=== PATIENT | female | born 1980 | race American Indian/Alaskan Native ===

== ENCOUNTER 2017-01-07 09:14 | Emergency (ER) | payer SELFPAY ==
[2017-01-07 10:03] VITALS: BP 126/89
[2017-01-07 11:35] LABS: Bilirubin,Urine NEG (Negative); Blood,Urine NEG (Negative); Ketones,Urine NEG (Negative); Leukocyte Esterase,Urine NEG (Negative); Mucus,Urine FEW /HPF; Nitrite,Urine NEG (Negative); Protein,Urine <15 mg/dL mg/dL (Negative); Urobilinogen,Urine < 2.0 mg/dL (<2.0)
[2017-01-07] MEDS ORDERED: REGLAN IM ONE (12:26)
[2017-01-07] MEDS ORDERED: TORADOL IM ONE (12:26)
--- NOTE | 2017-01-07 12:33 | Emergency Department Report ---
ED Headache HPI - General Chief Complaint: Headache Stated Complaint: MIGRAINES 1WK Time Seen by Provider: 01/07/17 12:10 Source: patient - History of Present Illness Initial Comments: Patient comes into the ER today with complaints of frontal and bilateral temporal headache that has been constant over the past week. Patient does state that over the past couple years she has had frequent recurrent headaches weekly. Patient denies any injury. Patient states that she has been seen at other facilities and has had recently a negative CT scan of the head. Patient states that she was referred to neurology but she lost the paperwork and has not seen a specialist yet. Patient has been taken [id number] medicines as well as tramadol without any relief in her headache. Patient denies any change in environment or diet. Patient denies any nausea, vomiting, nasal congestion, vision changes, chest pain. Patient states that she has also been feeling very tight and tense in her neck. Patient came in here today in hopes of getting something for her pain and for another referral to a specialist. Allergies/Adverse Reactions: Allergies No Known Allergies Allergy (Unverified 01/07/17 09:58) Home Medications: Ambulatory Orders Butalb/Acetamin/Caff 50-325-40 [Fioricet] 1 tab PO Q6HR PRN #20 tab 01/07/17 Cyclobenzaprine HCl [Flexeril 5 MG TAB] 5 mg PO TID #20 tab 01/07/17 predniSONE [Deltasone] 40 mg PO QDAY 5 Days 01/07/17 ED Review of Systems ROS: Stated complaint: MIGRAINES 1WK Other details as noted in HPI Constitutional: denies: chills, fever Eyes: denies: eye pain, eye discharge, vision change ENT: denies: ear pain, throat pain, dental pain, hearing loss, epistaxis, congestion Respiratory: denies: cough, shortness of breath, wheezing Cardiovascular: denies: chest pain, palpitations Endocrine: no symptoms reported Gastrointestinal: denies: abdominal pain, nausea, vomiting, diarrhea Genitourinary: denies: urgency, dysuria, discharge Musculoskeletal: denies: back pain, joint swelling, arthralgia Skin: denies: rash, lesions Neurological: headache. denies: weakness, numbness, paresthesias, confusion, abnormal gait, vertigo Psychiatric: denies: anxiety, depression Hematological/Lymphatic: denies: easy bleeding, easy bruising ED Past Medical Hx - Past Medical History Previous Medical History?: Yes Additional medical history: Vaginal dleivery x 3 - Surgical History Past Surgical History?: Yes Additional Surgical History: tubaligation - Social History Smoking Status: Never Smoker Substance Use Type: Alcohol, Non Opiate Pain - Medications Home Medications: Home Medications Medication Instructions Recorded Confirmed Last Taken Type Butalb/Acetamin/Caff 50-325-40 1 tab PO Q6HR PRN #20 tab 01/07/17 Unknown Rx [Fioricet] Cyclobenzaprine HCl [Flexeril 5 MG 5 mg PO TID #20 tab 01/07/17 Unknown Rx TAB] predniSONE [Deltasone] 40 mg PO QDAY 5 Days 01/07/17 Unknown Rx ED Physical Exam - General Limitations: No Limitations General appearance: alert, in no apparent distress - Head Head exam: Present: atraumatic, normocephalic, normal inspection, other ( bilateral temporal tenderness) - Eye Eye exam: Present: normal appearance, PERRL, EOMI. Absent: conjunctival injection, periorbital swelling, periorbital tenderness Pupils: Present: normal accommodation - ENT ENT exam: Present: normal exam, normal orophraynx, mucous membranes moist, TM's normal bilaterally, normal external ear exam - Neck Neck exam: Present: normal inspection, tenderness (bilateral posterior muscular tenderness. No vertebral body tenderness), full ROM. Absent: meningismus, lymphadenopathy - Respiratory Respiratory exam: Present: normal lung sounds bilaterally. Absent: respiratory distress, chest wall tenderness - Cardiovascular Cardiovascular Exam: Present: regular rate, normal rhythm, normal heart sounds. Absent: systolic murmur, diastolic murmur, rubs, gallop - GI/Abdominal GI/Abdominal exam: Present: soft, normal bowel sounds. Absent: distended, tenderness - Extremities Exam Extremities exam: Present: normal inspection, full ROM, tenderness (bilateral parascapular muscle tenderness), normal capillary refill. Absent: calf tenderness - Back Exam Back exam: Present: normal inspection, full ROM, tenderness (bilateral upper trapezius and parascapular tenderness). Absent: CVA tenderness (R), CVA tenderness (L), paraspinal tenderness, vertebral tenderness, rash noted - Neurological Exam Neurological exam: Present: alert, oriented X3, CN II-XII intact, normal gait, reflexes normal. Absent: motor sensory deficit - Psychiatric Psychiatric exam: Present: normal affect, normal mood - Skin Skin exam: Present: warm, dry, intact, normal color. Absent: rash ED Course Vital Signs 01/07/17 01/07/17 09:58 11:38 Temperature 98.4 F Pulse Rate 71 Respiratory 20 18 Rate Blood Pressure 126/89 O2 Sat by Pulse 100 100 Oximetry ED Medical Decision Making - Lab Data Lab Results 01/07/17 Range/Units 11:10 Urine Color Yellow (Yellow) Urine Turbidity Clear (Clear) Urine pH 8.0 H (5.0-7.0) Ur Specific Lee 1.013 (1.003-1.030) Urine Protein <15 mg/dl (Negative) mg/dL Urine Glucose (UA) Neg (Negative) mg/dL Urine Ketones Neg (Negative) mg/dL Urine Blood Neg (Negative) Urine Nitrite Neg (Negative) Urine Bilirubin Neg (Negative) Urine Urobilinogen < 2.0 (<2.0) mg/dL Ur Leukocyte Esterase Neg (Negative) Urine WBC (Auto) 1.0 (0.0-6.0) /HPF Urine RBC (Auto) 2.0 (0.0-6.0) /HPF U Epithel Cells (Auto) 2.0 (0-13.0) /HPF Urine Mucus Few /HPF - Medical Decision Making Patient is nontoxic and hemodynamically stable. Based on the history and examination of patient, I have high suspicion for potential tension type headaches as the cause of her pain. I have encouraged patient to start a headache diary in efforts to find a pattern to make causative agents of her headaches. I will refer patient to a neurologist for further evaluation. I see no point in obtaining additional CT imaging at this point. The patient was given Toradol and Reglan injection in the ER for symptomatic relief. I will continue patient on some outpatient medications for her pain as well as some muscle relaxants for anticipated muscle etiology to her problem. Patient is in the room with her daughter and does not want to have a pelvic exam done at this time. Patient is in agreement with treatment plan patient is stable for discharge. Critical care attestation.: If time is entered above; I have spent that time in minutes in the direct care of this critically ill patient, excluding procedure time. ED Disposition Clinical Impression: Recurrent headache Disposition: DC-01 TO HOME OR SELFCARE Is pt being admited?: No Does the pt Need Aspirin: No Condition: Good Instructions: Tension Headache (ED), Acute Headache (ED) Prescriptions: Butalb/Acetamin/Caff 50-325-40 [Fioricet] 1 tab PO Q6HR PRN #20 tab PRN Reason: Headache Cyclobenzaprine HCl [Flexeril 5 MG TAB] 5 mg PO TID #20 tab predniSONE [Deltasone] 40 mg PO QDAY 5 Days Referrals: TAMMY KUMAR MD [Primary Care Provider] - 3-5 Days CHRIS VÁSQUEZ MD [Referring] - 3-5 Days (Neurologist ) Forms: Work/School Release Form(ED) Time of Disposition: 12:40
== END 2017-01-07 12:54 | disposition home or self-care (01) ==
LOC: ED 09:14
DX: R51 Headache (principal)
CPT/HCPCS: 81001; 96372; 99283; J1885; J2765